=== PATIENT | male | born 1955 | race Caucasian/White ===

== ENCOUNTER 2025-04-28 06:08 | Day surgery (SDC) | payer OTHER ==
[~2025-04-28] VITALS: Ht 170.2 cm; Wt 82.6 kg
[~2025-04-28 06:08] MED LIST: NS 1,000 ML IV ONE
[2025-04-28] MEDS ORDERED: ATEN25 PO (06:40)
[2025-04-28] MEDS ORDERED: Aspir 8181 MG PO (06:41)
[2025-04-28] MEDS ORDERED: AMLODIPINE-OLM1 EACH PO (06:44)
[2025-04-28 06:57] VITALS: BP 130/94
[2025-04-28] MEDS ORDERED: Dexamethasone Sod Phos 10 MG/ML 1ML VIAL ONE (06:57)
[2025-04-28] MEDS ORDERED: Bupivacaine 0.5% HCl 5 MG/ML 30MLVIAL ONE (06:57)
[2025-04-28] MEDS ORDERED: NS 1,000 ML IV ONE ×2 (06:59→07:38)
[2025-04-28] MEDS ORDERED: Tranexamic Acid 100 ML IV ONE (07:07)
[2025-04-28] MEDS ORDERED: CefTRIAXone Sodium 2,000 MG in NS 100 ML IV SCH (07:10)
[2025-04-28] MEDS ORDERED: Bupivacaine 0.5% W/EPI 1:200000 SDV 30 ML Vial ONE (07:15)
--- NOTE | 2025-04-28 07:30 | NUR ---
04/28/25 0730 Uriel Ag PLAN TO CANCEL PROCEDURE PER DR MCELROY DUE TO WOUND AT OPERATIVE SITE.
== END 2025-04-28 07:51 | disposition home or self-care (01) ==
LOC: ORSCSDS 06:08
DX: M19.012 Primary osteoarthritis, left shoulder (principal); Z53.9 Procedure and treatment not carried out, unspecified reason
CPT/HCPCS: A9270; J0696; J1100; J2003; J7030

== ENCOUNTER 2025-06-09 06:14 | Day surgery (SDC) | payer OTHER ==
[~2025-06-09] VITALS: Ht 170.2 cm; Wt 83.0 kg
[~2025-06-09 06:14] MED LIST changes: +AMLODIPINE-OLM1 EACH PO; +ATEN25 PO; +Aspir 8181 MG PO; -NS 1,000 ML IV ONE
[2025-06-09] MEDS ORDERED: Tranexamic Acid 100 ML IV ONE ×2 (06:21→10:18)
[2025-06-09] MEDS ORDERED: NS 1,000 ML IV ONE ×2 (06:23→06:55)
[2025-06-09] MEDS ORDERED: CefTRIAXone 2000 MG Vial ONE (06:23)
[2025-06-09] MEDS ORDERED: OMEP20ER PO (06:38)
[2025-06-09] MEDS ORDERED: ACET500 (06:39)
[2025-06-09] MEDS ORDERED: MELATONIN5 M1 PO (06:41)
[2025-06-09] MEDS ORDERED: Aspir 8181 MG PO (06:41)
[2025-06-09] MEDS ORDERED: Rocuronium Bromide 10 MG/ML 5ML Injection IV ONE ×2 (06:54→08:07)
[2025-06-09] MEDS ORDERED: FentaNYL Citrate 50 MCG/ML 2 ML Injection ONE (06:56)
[2025-06-09] MEDS ORDERED: Midazolam HCl 1MG / ML 2ML Vial ONE (06:56)
[2025-06-09] MEDS ORDERED: Dexamethasone Sod Phos 10 MG/ML 1ML VIAL ONE ×2 (06:58→08:00)
[2025-06-09] MEDS ORDERED: Ropivacaine 0.5% HCL/PF 5 MG/ML 30ML Vial ONE (07:00)
[2025-06-09] MEDS ORDERED: Bupivacaine 0.5% W/EPI 1:200000 SDV 30 ML Vial ONE (07:02)
--- NOTE | 2025-06-09 07:41 | NUR ---
06/09/25 0741 Shameka Griffin INTERSCALENE BLOCK IN PRE-OP ROOM. T/O WITH GALILEO MENSAH CRNA AND SHAMEKA Ortiz RN AT 0723. START TIME 07. END TIME 07. O2 SATURATIONS AT 93-96% ON ROOM AIR, PT TOLERATED WELL. KILEY Wiggins RN IN ROOM FOR BLOCK.
[2025-06-09] MEDS ORDERED: Ondansetron HCl 2 MG / ML 2ML Vial ONE (08:00)
[2025-06-09] MEDS ORDERED: ePHEDrine Sulfate 50 MG/ML 1ML Injection ONE (08:10)
[2025-06-09] MEDS ORDERED: Sugammadex Sodium 200 MG/2ML SDV (100 MG/ML) ONE (08:10)
[2025-06-09] MEDS ORDERED: Phenylephrine HCl 100 MCG/ML-NS 10MLSYR (1MG/10ML) ONE (08:23)
--- NOTE | 2025-06-09 08:45 | NUR ---
06/09/25 0845 Mary Beth Chacko PRE WITH DR. Wei AT THE SHOULDER DOWN, THIS RN HAND UP.
--- NOTE | 2025-06-09 10:19 | NUR ---
06/09/25 1019 RAIZA AGUILA FROM RAD IN TO TAKE XRAYS ORDERED BY DR. MCELROY: JT/Aston MEJIA
[2025-06-09 10:38] VITALS: BP 88/37
--- NOTE | 2025-06-09 10:40 | NUR ---
06/09/25 1040 RAIZA AGUILA PT WAS PLACED ON 2L OXYGEN VIA N/C. CURRENTLY SAT AT 95% WILL CONTINUE TO MONITOR BP. DENIES SOB. DENIES N & V. WILL TAKE FREQUENT BP.
== END 2025-06-09 12:05 | disposition home or self-care (01) ==
LOC: ORSCSDS 06:14
PROVIDERS: Orthopaedic Surgery
PROC: 0RRK00Z Replacement of Left Shoulder Joint with Reverse Ball and Socket Synthetic Substitute, Open Approach (ICD-10-PCS; principal; 2025-06-09 07:30)
DX: M19.012 Primary osteoarthritis, left shoulder (principal); I12.9 Hypertensive chronic kidney disease with stage 1 through stage 4 chronic kidney disease, or unspecified chronic kidney disease; N18.30 Chronic kidney disease, stage 3 unspecified; G47.33 Obstructive sleep apnea (adult) (pediatric); Z87.891 Personal history of nicotine dependence; Z79.899 Other long term (current) drug therapy; Z79.82 Long term (current) use of aspirin
CPT/HCPCS: 73030; A9270; C1713; C1776; J0696; J1100; J2250; J2371; J2405; J2704; J2795; J3010; J7030; J7120